=== PATIENT | male | born 1970 | race Caucasian/White ===

== ENCOUNTER 2017-03-30 13:34 | Emergency (ER) | payer SELFPAY | END 2017-03-30 15:50 | disposition home or self-care (01) | LOC: D.ER 13:34 | DX: L25.9 Unspecified contact dermatitis, unspecified cause (principal); J30.9 Allergic rhinitis, unspecified ==

== ENCOUNTER 2017-05-13 11:50 | Emergency (ER) | payer SELFPAY | END 2017-05-13 14:45 | disposition home or self-care (01) | LOC: D.ER 11:50 | DX: K04.7 Periapical abscess without sinus (principal) ==